=== PATIENT | female | born 1950 | race Caucasian/White ===

== ENCOUNTER → 2016-04-08 | Outpatient (CLI) | payer MEDICARE ==
[2016-04-08 18:26] LABS: Basophils # (A) 0.1 k/uL (0-0.2); Basophils % (A) 1 %; CH 29.6; CHCM 32.4; Eosinophils # (A) 0.2 k/uL (0-0.7); Eosinophils % (A) 3 %; HCT 39.4 % (34.0-46.0); HGB 12.4 gm/dL (11.4-16.0); Luc # (Auto) 0.07; Luc % (Auto) 1; Lymphocytes # (A) 1.6 k/uL (1.0-4.8); Lymphocytes % (A) 25 %; MCH 28.9 pg (25.0-35.0); MCHC 31.5 g/dL (31.0-37.0); MCV 91.8 fL (80.0-100.0); Monocytes # (A) 0.2 k/uL (0-1.0); Monocytes % (A) 3 %; Neutrophils # (A) 4.3 k/uL (1.3-7.7); Neutrophils % (A) 67 %; RDW 13.5 % (11.5-15.5); WBC 6.4 k/uL (3.8-10.6); WBC (Perox) 6.75
[2016-04-08 19:27] LABS: ALT 38 U/L (9-52); AST 29 U/L (14-36); Alkaline Phosphatase 105 U/L (38-126); Anion Gap 10 mmol/L; Blood Urea Nitrogen 28 mg/dL (7-17); Carbon Dioxide 24 mmol/L (22-30); Chloride 110 mmol/L (98-107); Cholesterol 217 mg/dL (<200); Glucose 108 mg/dL (74-99); HDL Cholesterol 74 mg/dL (40-60); Non-African American GFR(MDRD) >60 (>60 ml/min/1.73 sqM); Potassium 4.4 mmol/L (3.5-5.1); Sodium 144 mmol/L (137-145); Total Bilirubin 0.3 mg/dL (0.2-1.3); Total Protein 6.9 g/dL (6.3-8.2); Triglycerides 79 mg/dL (<150)
== END | disposition home or self-care (01) ==
LOC: MMGSC 09:16
PROVIDERS: ATTEND Family Medicine
DX: I10 Essential (primary) hypertension (principal); E78.5 Hyperlipidemia, unspecified
CPT/HCPCS: 36415; 80053; 80061; 84439; 84443; 85025

== ENCOUNTER → 2016-04-09 | Outpatient (CLI) | payer MEDICARE ==
--- NOTE | 2016-04-09 12:18 | EST ---
DATE OF SERVICE: 04/09/2016 AGE: 65Y SEX: F HT: 60" WT: 175 lbs. Protocol [place]: X Other: Stress Stage: II Dur. of Exercise: 7:04 *Heart Rate Blood Pressure *Rest: 69 Rest: 160/60 * *Max. Achieved: 154 Maximum BP: 180/77 85% PMHR: 130 100% PMHR: 154 *METS: 3.7 INDICATIONS: Hypertension. MEDICATIONS: Aspirin, lorazepam, citalopram, clonidine. Mrs. Hayes is a 65-year-old female being evaluated for symptoms of chest pain. Baseline EKG showed a sinus rhythm with mild diffuse changes in the inferolateral leads and also anterolateral leads. Blood pressure at rest was 160/60 with pulse rate of 69. Patient walked on the [place] protocol for 7 minutes, achieving a maximum heart rate of about 154 with a blood pressure of about 180/77. EKGs taken during and after the exercise continued to show nonspecific ST-T abnormalities. Patient complained of chest pain, a scale of 1 to 10 at about 4. This was relieved with rest and sublingual nitroglycerin. FINAL IMPRESSION: 1. Inconclusive stress test because of baseline EKG abnormalities. 2. Patient complained of chest pain, suggestive of angina relieved with rest and nitroglycerin. 3. Patient may be considered for further evaluation, either with a pharmacological stress test or a cardiac catheterization for evaluation of chest pains.
== END | disposition home or self-care (01) ==
LOC: RADNMMAIN 10:32
PROVIDERS: ATTEND Family Medicine
DX: R94.31 Abnormal electrocardiogram [ECG] [EKG] (principal); R07.9 Chest pain, unspecified; I10 Essential (primary) hypertension; E78.5 Hyperlipidemia, unspecified
CPT/HCPCS: 93017

== ENCOUNTER 2016-05-02 06:18 | Day surgery (SDC) | payer MEDICARE, OTHER ==
[2016-05-01 10:49] VITALS: BMI 34.2
[2016-05-02] MEDS ORDERED: ATORVASTATIN 80 MG TAB PO STA (06:29)
[2016-05-02] MEDS ORDERED: SODIUM CHLORIDE 0.9% 1,000 ML in EMPTY BAG 1 BAG IV ONE (06:29)
[2016-05-02] MEDS ORDERED: ALPRAZolam 0.5 MG TAB PO PRN (06:29)
[2016-05-02] MEDS ORDERED: ASPIRIN 325 MG TAB PO STA (06:29)
[2016-05-02] MEDS ORDERED: NITROGLYCERIN SL TABS 0.4 MG TAB SUBLINGUAL PRN (06:29)
[2016-05-02] MEDS ORDERED: ALPRAZolam 0.25 MG TAB PO PRN (06:29)
[2016-05-02 06:53] VITALS: TEMP 97.9
[2016-05-02] MEDS ORDERED: LIDOCAINE 2% INJ 20 MG/ML (20 ML MDV) ONE (07:13)
[2016-05-02] MEDS ORDERED: diphenhydrAMINE 50 MG/ML 1 ML VIAL ONE (07:20)
[2016-05-02] MEDS ORDERED: fentaNYL (PF) 50 MCG/ML 2 ML AMP ONE (07:21)
[2016-05-02] MEDS ORDERED: diphenhydrAMINE 50 MG/ML 1 ML VIAL IVP ONE (07:37)
[2016-05-02] MEDS ORDERED: fentaNYL (PF) 50 MCG/ML 2 ML AMP IV ONE (07:44)
[2016-05-02] MEDS ORDERED: LIDOCAINE 2% INJ 20 MG/ML SQ ONE (07:46)
[2016-05-02] MEDS ORDERED: ENALAPRILAT 1.25 MG/ML 1 ML VIAL ONE (07:52)
[2016-05-02] MEDS ORDERED: ENALAPRILAT 1.25 MG/ML 1 ML VIAL IVP ONE (07:53)
[2016-05-02] MEDS ORDERED: IOHEXOL 350 MG/ML 100 ML BOTTLE INJ ONE (08:02)
[2016-05-02] MEDS ORDERED: RX INFO: IV CONTRAST WAS GIVEN 1 EACH MISC MISCELLANE PRN (08:12)
[2016-05-02] MEDS ORDERED: FUROSEMIDE 10 MG/ML 2 ML VIAL IV STA (08:15)
[2016-05-02] MEDS ORDERED: SODIUM CHLORIDE 0.9% 1,000 ML IV SCH (08:15)
--- NOTE | 2016-05-02 08:20 | P.PCN ---
Date of Procedure: 05/02/16 Preoperative Diagnosis: Chest pain ,rule out coronary artery disease Postoperative Diagnosis: Normal coronary arteries Procedure(s) Performed: Left heart catheterization without left ventriculography Description of Procedure: HISTORY: This is a 65-year-old female with history of hypertension who is evaluated been stress test because of her recurrent chest pains. Patient developed nonspecific ST-T abnormalities and chest pains relieved with nitroglycerin during stress test. Patient is advised to have a the nuclear stress test or a cardiac catheterization for definitive diagnosis. Patient has strong family history of ischemic heart disease and preferred to have a cardiac cath. CONSENT:I have discussed the risks, benefits and alternative therapies for the above-mentioned procedure and for both sedation/analgesia as well as necessary blood product administration, if indicated, as they pertain to this patient. The patient has indicated understanding and acceptance of the risks and procedures discussed. PROCEDURE: Patient was brought to the lab in a fasting state. Patient was given some IV sedation. The right groin is infiltrated with lidocaine and right femoral artery was entered using Seldinger technique. A 6-Armenian catheter was left in place and selective coronary arteriography was performed. Patient tolerated the procedure well. Femoral angiogram was performed and Angio-Seal was applied for hemostasis. No immediate complications were noted and patient was transferred to [facility] in a stable condition HEMODYNAMICS: The aortic pressure is about 170/80. Left ankle end-diastolic pressure is about 20-25. There was no gradient across the aortic valve SELECTIVE CORONARY ARTERIOGRAPHY: LEFT MAIN: Normal length and patent THE LEFT ANTERIOR DESCENDING CORONARY ARTERY: This is a fair caliber vessel but becomes small in caliber in the distal distribution. Q's rise to good-sized diagonal branch. The LAD and the diagonal branch are free of any significant focal occlusive disease. THE LEFT CIRCUMFLEX AND IS CORONARY ARTERY: This is a good caliber vessel giving rise to good-sized OM branch. The circumflex coronary artery is free of occlusive disease. THE RIGHT CORONARY ARTERY: This is a good caliber vessel giving rise to PDA and PLV and dominant in nature. Free of any occlusive disease LEFT VENTRICULOGRAPHY: Not performed FINAL IMPRESSION: #1 normal coronary arteries #2 elevated end-diastolic pressures #3 hypertensive cardiac vascular disease #4 atypical chest pain PLAN: Maximum medical therapy and risk factor modification PROGNOSIS: Fair
[2016-05-02] MEDS ORDERED: LISINOPRIL 5 MG TAB PO SCH (09:00)
[2016-05-02 11:19] VITALS: PULSE 56; RESP 18
[2016-05-02 12:23] VITALS: BP 173/79
--- NOTE | 2016-05-08 08:42 | CDI ---
Per your operative report the patient was given some IV sedation and Fentanyl is noted to be administered. Per new CMS ([employer] for Medicare and Medicaid Services) guidelines there is a change by which the work of moderate sedation will be reimbursed separately. Further clarification of your documentation of some IV sedation is needed for proper reporting purposes. Please clarify the type of sedation this patient received during the cardiac catheterization. Moderate/conscious sedation MAC (unconscious sedation) General Anesthesia Other (please specify) Please document your findings in an addendum to the Procedure Note. Thank you for your time. EMEKA
== END 2016-05-02 13:01 | disposition home or self-care (01) ==
LOC: CATHCVL 06:18
PROVIDERS: ATTEND Internal Medicine Cardiovascular Disease
DX: R07.89 Other chest pain (principal); I11.9 Hypertensive heart disease without heart failure; I10 Essential (primary) hypertension; Z82.49 Family history of ischemic heart disease and other diseases of the circulatory system; Z79.899 Other long term (current) drug therapy
CPT/HCPCS: 99156; 93458; C1760; C1894; C1769; J2001; J1200; Q9967; J3010

== ENCOUNTER → 2016-07-07 | Outpatient (CLI) | payer MEDICARE ==
[2016-07-07 18:37] LABS: Cholesterol 227 mg/dL (<200); Glucose 102 mg/dL (74-99); HDL Cholesterol 70 mg/dL (40-60); Triglycerides 91 mg/dL (<150)
[2016-07-07 19:55] LABS: Hemoglobin A1C 5.8 % (4.2-6.1)
== END ==
LOC: MMGSC 09:15
PROVIDERS: ATTEND Family Medicine
DX: E78.5 Hyperlipidemia, unspecified (principal); I10 Essential (primary) hypertension; R73.9 Hyperglycemia, unspecified
CPT/HCPCS: 36415; 80061; 82947; 83036

== ENCOUNTER → 2017-05-20 | Outpatient (CLI) | payer MEDICARE ==
[2017-05-20 20:01] LABS: Albumin 3.9 g/dL (3.5-5.0); Calcium 10.1 mg/dL (8.4-10.2); Potassium 4.3 mmol/L (3.5-5.1); Total Bilirubin 0.4 mg/dL (0.2-1.3)
== END | disposition home or self-care (01) ==
LOC: MMGSC 10:36
PROVIDERS: ATTEND Family Medicine
DX: I10 Essential (primary) hypertension (principal); E78.5 Hyperlipidemia, unspecified
CPT/HCPCS: 36415; 80053; 80061

== ENCOUNTER → 2017-11-03 | Outpatient (CLI) | payer MEDICARE ==
--- NOTE | 2017-11-04 10:32 | MM ---
Reason for exam: additional evaluation requested from prior study. Last mammogram was performed 1 year and 11 months ago. History: Patient is postmenopausal and has history of endometrial cancer at age 29. Family history of breast cancer in aunt, premenopausal breast cancer in sister at age 48, and breast cancer in maternal grandmother at age 44. Benign excisional biopsy of the right breast, March 30, 2002. Benign excisional biopsy of the left breast. Took progesterone for 3 years beginning at age 60. Physical Findings: Nurse did not find any significant physical abnormalities on exam. MG 3D Diag Mammo W/Cad SAMI Bilateral CC and MLO view(s) were taken. Prior study comparison: November 21, 2015, bilateral MG screening mammo w CAD. September 04, 2014, bilateral MG screening mammo w CAD. June 24, 2013, bilateral digital screening mammo w/CAD. There are scattered fibroglandular densities. Stable excisional changes on both sides. No significant new findings when compared with previous films. These results were verbally communicated with the patient and result sheet given to the patient on 11/03/17. ASSESSMENT: Negative, BI-RAD 1 RECOMMENDATION: Routine screening mammogram of both breasts in 1 year.
== END | disposition home or self-care (01) ==
LOC: RADMAMWWP 12:47
PROVIDERS: ATTEND Family Medicine
DX: R92.8 Other abnormal and inconclusive findings on diagnostic imaging of breast (principal)
CPT/HCPCS: 77066; G0279; 77062

== ENCOUNTER → 2017-12-01 | Outpatient (CLI) | payer MEDICARE ==
[2017-12-01 12:16] LABS: ALT 12 U/L (9-52); AST 23 U/L (14-36); Alkaline Phosphatase 92 U/L (38-126); Anion Gap 7 mmol/L; Blood Urea Nitrogen 14 mg/dL (7-17); Calcium 9.5 mg/dL (8.4-10.2); Carbon Dioxide 28 mmol/L (22-30); Chloride 103 mmol/L (98-107); Glucose 112 mg/dL (74-99); Magnesium 1.8 mg/dL (1.6-2.3); Potassium 4.1 mmol/L (3.5-5.1); Sodium 138 mmol/L (137-145); Total Bilirubin 0.3 mg/dL (0.2-1.3); Total Protein 6.9 g/dL (6.3-8.2)
[2017-12-01 14:15] LABS: HCT 39.9 % (34.0-46.0); HGB 12.9 gm/dL (11.4-16.0); MCH 29.5 pg (25.0-35.0); MCHC 32.2 g/dL (31.0-37.0); MCV 91.5 fL (80.0-100.0); Mean Platelet Volume 7.4; Platelet Count 322 k/uL (150-450); RBC 4.36 m/uL (3.80-5.40); RDW 13.1 % (11.5-15.5); WBC 10.3 k/uL (3.8-10.6)
== END | disposition home or self-care (01) ==
LOC: LABWHC1 10:51
PROVIDERS: ATTEND Family Medicine
DX: G80.9 Cerebral palsy, unspecified (principal)
CPT/HCPCS: 36415; 80053; 83735; 85027; 85379

== ENCOUNTER → 2019-02-23 | Outpatient (CLI) | payer MEDICARE ==
--- NOTE | 2019-02-24 13:33 | MM ---
Reason for exam: screening (asymptomatic). Last mammogram was performed 1 year and 4 months ago. History: Patient is postmenopausal and has history of endometrial cancer at age 29. Family history of breast cancer in aunt, premenopausal breast cancer in sister at age 48, and breast cancer in maternal grandmother at age 44. Benign excisional biopsy of the right breast, March 30, 2002. Benign excisional biopsy of the left breast. Took progesterone for 3 years beginning at age 60. Physical Findings: A clinical breast exam by your physician is recommended on an annual basis and results should be correlated with mammographic findings. MG 3D Screening Mammo W/Cad Bilateral CC and MLO view(s) were taken. Prior study comparison: November 03, 2017, bilateral MG 3d diag mammo w/cad SAMI. November 28, 2015, right breast MG work up mamm w CAD RT. The breast tissue is heterogeneously dense. This may lower the sensitivity of mammography. Benign appearing bilateral calcifications. No suspicious abnormality. Post excisional change on the right. No significant changes when compared with prior studies. ASSESSMENT: Benign, BI-RAD 2 RECOMMENDATION: Routine screening mammogram of both breasts in 1 year.
== END | disposition home or self-care (01) ==
LOC: RADMAMWWP 15:28
PROVIDERS: ATTEND Family Medicine
DX: Z12.31 Encounter for screening mammogram for malignant neoplasm of breast (principal)
CPT/HCPCS: 77063; 77067

== ENCOUNTER → 2019-03-22 | Outpatient (CLI) | payer MEDICARE ==
[2019-03-22 10:06] LABS: HCT 36.4 % (34.0-46.0); MCH 29.1 pg (25.0-35.0); MCV 88.4 fL (80.0-100.0); Mean Platelet Volume 7.5; Platelet Count 291 k/uL (150-450); RBC 4.12 m/uL (3.80-5.40); RDW 14.3 % (11.5-15.5); WBC 7.3 k/uL (3.8-10.6)
[2019-03-22 16:14] LABS: ALT 25 U/L (8-44); AST 28 U/L (13-35); African American GFR (CKD) 75.6 (60.0-200.0); Albumin/Globulin Ratio 2.32 (1.60-3.17); Alkaline Phosphatase 119 U/L (41-126); BUN/Creat Ratio 21.11 Ratio (12.00-20.00); Calcium 9.7 mg/dL (8.7-10.3); Chloride 104 mmol/L (96-109); Globulin 1.9 g/dL (1.6-3.3); Glucose 108 mg/dL (70-110); Iron 48 ug/dL (50-170); Non-African American GFR(CKD) 65.2 (60.0-200.0); Potassium 3.5 mmol/L (3.5-5.5); Sodium 142 mmol/L (135-145); Total Bilirubin 0.4 mg/dL (0.2-1.2); Total Protein 6.3 g/dL (6.2-8.2)
[2019-03-22 16:52] LABS: Folate, Serum >24.0 ng/mL
== END | disposition home or self-care (01) ==
LOC: LABWHC1 08:52
PROVIDERS: ATTEND Surgery
DX: K90.9 Intestinal malabsorption, unspecified (principal); I10 Essential (primary) hypertension; D50.9 Iron deficiency anemia, unspecified; E55.9 Vitamin D deficiency, unspecified; D51.8 Other vitamin B12 deficiency anemias; Z98.84 Bariatric surgery status
CPT/HCPCS: 36415; 80053; 82306; 82607; 82746; 83540; 84425; 85027

== ENCOUNTER → 2019-04-15 | Outpatient (CLI) | payer MEDICARE ==
--- NOTE | 2019-04-15 13:59 | US ---
EXAMINATION TYPE: US venous doppler duplex LE RT DATE OF EXAM: 04/15/2019 1:54 PM COMPARISON: NONE CLINICAL HISTORY: RLE knee and calf pain M25.561. Right leg pain SIDE PERFORMED: Right TECHNIQUE: The lower extremity deep venous system is examined utilizing real time linear array sonog yolanda with graded compression, doppler sonography and color-flow sonography. VESSELS IMAGED: External Iliac Vein (EIV) Common Femoral Vein Deep Femoral Vein Greater Saphenous Vein * Femoral Vein Popliteal Vein Small Saphenous Vein * Proximal Calf Veins (* superficial vessels) Right Leg: Appears negative for DVT IMPRESSION: 1. Right lower extremity ultrasound negative for deep venous thrombosis.
== END | disposition home or self-care (01) ==
LOC: RADUSWWP 13:21
PROVIDERS: ATTEND Orthopaedic Surgery
DX: M25.561 Pain in right knee (principal); M17.11 Unilateral primary osteoarthritis, right knee; I80.9 Phlebitis and thrombophlebitis of unspecified site

== ENCOUNTER → 2023-03-05 | Outpatient (CLI) | payer MEDICARE, BC ==
[2023-03-05 18:51] LABS: Basophils # (A) 0.06 X 10*3/uL (0.00-0.10); Basophils % (A) 0.9 %; Eosinophils # (A) 0.07 X 10*3/uL (0.04-0.35); Eosinophils % (A) 1.1 %; HCT 39.1 % (37.2-46.3); HGB 12.5 g/dL (12.0-15.0); Lymphocytes # (A) 2.08 X 10*3/uL (0.90-5.00); Lymphocytes % (A) 31.7 %; MCH 29.2 pg (27.0-32.0); MCV 91.4 FL (80.0-97.0); Mean Platelet Volume 10.9 FL (9.5-12.2); Monocytes # (A) 0.29 X 10*3/uL (0.20-1.00); Monocytes % (A) 4.4 %; NRBC Per 100 WBC 0 X 10*3/uL (0.00-0.01); Neutrophils # (A) 4.04 X 10*3/uL (1.80-7.70); Neutrophils % (A) 61.6 %; Platelet Count 330 X 10*3/uL (140-440); RBC 4.28 X 10*6/uL (4.10-5.20); RDW 13.8 % (11.5-14.5); WBC 6.56 X 10*3/uL (4.50-10.00)
[2023-03-05 18:54] LABS: Blood Urea Nitrogen 20.2 mg/dL (9.0-27.0); Calcium 10.1 mg/dL (8.7-10.3); Carbon Dioxide 23.7 mmol/L (21.6-31.8); Chloride 105 mmol/L (96-109); Glucose 96 mg/dL (70-110); Potassium 4.1 mmol/L (3.5-5.5); Sodium 146 mmol/L (135-145)
== END | disposition home or self-care (01) ==
LOC: LABPAT 11:13
PROVIDERS: ATTEND Orthopaedic Surgery Hand Surgery
DX: Z01.812 Encounter for preprocedural laboratory examination (principal); G56.02 Carpal tunnel syndrome, left upper limb; M65.4 Radial styloid tenosynovitis [de Quervain]
CPT/HCPCS: 36415; 80048; 85025

== ENCOUNTER → 2023-03-18 | Day surgery (SDC) | payer BC, MEDICARE ==
--- NOTE | 2023-03-17 10:04 | P.HPOR ---
History of Present Illness H&P Date: 03/17/23 Subjective: This is a 72 year old female that presents today for initial evaluation regarding a several year history of progressively worsening left hand paresthesias in the thumb, index, middle and ring fingers. The patient has tried a steroid injection in the past with only temporary relief. She also has diffuse radial sided wrist pain that is worse with flexion/extension of the wrist and with carrying objects. She underwent steroid injection into the first dorsal compartment with temporary relief within the last year. She underwent a right endoscopic carpal tunnel release for severe carpal tunnel syndrome 10 months prior and has great relief from her symptoms on the right side. The patient denies any inciting event or neck pain. Physical Examination: LUE: AIN/PIN/Radial/Ulnar/Median motor intact. Radial/Ulnar/Median SILT. 2+/4 Ra dial/Ulnar pulses palpated. 5/5 APB, 5/5 FDI. Positive Finkelsteins, negative CMC grind, positive Durkan's compression. Impression: 1.) Left carpal tunnel syndrome 2.) Left DeQuervains tenosynovitis Plan: Diagnosis and treatment options were discussed with the patient. The patient has failed conservative treatment and would like to pursue a left endoscopic vs open carpal tunnel release and left first dorsal compartment release. Risks and benefits of surgery including bleeding, infection, damage to surrounding tissue, need for further surgery, possible need to convert to open procedure, residual numbness were discussed and the patient wished to go forward with surgery. CC: Dr Olga Mcfarlane MD -Valdez Nielsen DO Orthopedic Hand/Upper Extremity Surgeon Past Medical History Past Medical History: Cancer Additional Past Medical History / Comment(s): see Dr Bergeron H&P, hx cervical cancer History of Any Multi-Drug Resistant Organisms: None Reported Past Surgical History: Appendectomy, Bladder Surgery, Cholecystectomy, Hysterectomy Additional Past Surgical History / Comment(s): claudia cataracts Past Anesthesia/Blood Transfusion Reactions: No Reported Reaction Additional Past Anesthesia/Blood Transfusion Reaction / Comment(s): no hx blood transfusion Smoking Status: Never smoker - Past Family History Sister(s) Family Medical History: Cancer Medications and Allergies Home Medications Medication Instructions Recorded Confirmed Type Acetaminophen/Diphenhydramine 2 tab PO HS 04/15/22 04/23/22 History [Tylenol PM 500-25mg] Biotin 10 mg PO DAILY 04/15/22 04/23/22 History Calcium Lactate 1 tab PO DAILY 04/15/22 04/23/22 History Cholecalciferol [Vitamin D3 (25 25 mcg PO DAILY 04/15/22 04/23/22 History Mcg = 1000 Iu)] Levothyroxine Sodium [Synthroid] 50 mcg PO QAM 04/15/22 04/23/22 History Losartan [Cozaar] 50 mg PO QAM 04/15/22 04/23/22 History Pedi Multivit No.25/Folic Acid 1 tab PO DAILY 04/15/22 04/23/22 History [Flintstones Multivit Chew Tab] Rosuvastatin [Crestor] 10 mg PO DAILY 04/15/22 04/23/22 History Turmeric Root Extract [Turmeric] 500 mg PO DAILY 04/15/22 04/23/22 History Venlafaxine HCl [Effexor XR] 75 mg PO QAM 04/15/22 04/23/22 History busPIRone HCl [Buspar] 10 mg PO BID 04/15/22 04/23/22 History hydroCHLOROthiazide 25 mg PO DAILY 04/15/22 04/23/22 History Allergies Allergy/AdvReac Type Severity Reaction Status Date / Time bandaid Allergy little skin Uncoded 03/17/23 09:58 Physical Examination Osteopathic Statement: *. No significant issues noted on an osteopathic structural exam other than those noted in the History and Physical/Consult.
[2023-03-17 10:37] VITALS: BMI 32.2
[~2023-03-18] MED LIST: BUPIVACAINE (PF) 0.5% 30 ML VIAL SQ ONE; DEXAMETHASONE SOD PHOSPHATE 4 MG/ML 1 ML VIAL IV ONE; HYDROmorphone 0.5 MG/0.5 ML SYRINGE IVP PRN; LACTATED RINGERS 1,000 ML IV SCH; LIDOCAINE 1% (10MG/ML) FOR IV START INTRADERMA PRN; LIDOCAINE 2% INJ 20 MG/ML SQ ONE; MIDAZOLAM 2 MG/2 ML VIAL ONE; ONDANSETRON 4 MG/2 ML VIAL IVP ONE; PROPOFOL 10 MG/ML 20 ML VIAL IV ONE; Pre Op ABX Message 1 EACH MISC MISCELLANE ONE; droPERidol 5 MG/2 ML VIAL IVP ONE; fentaNYL (PF) 50 MCG/ML 2 ML AMP ONE
[2023-03-18 09:54] VITALS: TEMP 97
--- NOTE | 2023-03-18 11:45 | P.OP ---
Date of Procedure: 03/18/23 Preoperative Diagnosis: 1.) Left carpal tunnel syndrome 2.) Left DeQuervains tenosynovitis Postoperative Diagnosis: 1.) Left carpal tunnel syndrome 2.) Left DeQuervains tenosynovitis Procedure(s) Performed: 1.) Left endoscopic carpal tunnel release 2.) Left first dorsal compartment release Surgeon: Valdez Nielsen Estimated Blood Loss (ml): 0 Pathology: none sent Condition: stable Disposition: PACU Description of Procedure: This is a 72 year old female who presents today for a left endoscopic carpal tunnel release after having failed conservative treatment in the past. Risks and benefits of surgery were discussed with the patient including bleeding, damage to surrounding tissue, infection, need to convert to open procedure, need for further surgery as well as risks of anesthesia including pulmonary embolism and even and the patient wished to proceed with surgical intervention. The patients was seen in the pre-operative area by myself. Consent and H&P were completed and updated. The correct extremity was marked in the pre-operative area by myself and all other questions were answered. Operative Narrative: The patient was brought to the operating room by the department of anesthesia. They remained on the portable stretcher and a rolling hand table was brought to the side of the operative extremity. Pre-operative time out was performed indicating the correct patient, procedure and laterality. All in the room agreed. The patient was then drifted off to sleep by the department of anesthesia. MAC anesthesia was utilized and a 50:50 mixture of 1% Lidocaine and 0.5% bupivacaine was injected into the subcutaneous tissues of the palmar skin, 14ccs total. A nonsterile tourniquet was then applied to the operative extremity and the left upper extremity was then prepped and draped in normal sterile fashion. The operative extremity was the exsanguinated with an esmarch bandage and the tourniquet was inflated to 250mmHg. 15 blade scalpel was utilized to make a transverse incision on the palmar skin just ulnar to the palmaris longus tendon at the level of the distal wrist crease. Ragnell retractor was then placed radially and blunt dissection was performed to reveal the distal forearm fascia. This was lifted with fine Jeison pick ups and Littler tenotomy scissors were then used to open the forearm fascia transversely and a double skin hook was then placed. Hamate finder was placed into the carpal tunnel and then sequential sized dilators were inserted followed by the synovial elevator to separate the flexor tenosynovium from the undersurface of the transverse carpal ligament and a washboard texture was felt. The MicroAire endoscopic carpal tunnel release system gun was the then inserted into the carpal tunnel hugging the deep portion of the transverse carpal ligament in line with the base of the ring finger. Transverse fibers of the ligament were directly visualized. Pressure was applied on the palm to reveal the distal extent of the transverse carpal ligament. The blade was then deployed and the distal half of the transverse carpal ligament was released. The scope was then brought distal again and remaining transverse fibers were incised with the blade. The proximal half of the transverse carpal ligament was then divided and again the scope was advanced distal and remaining transverse fibers were incised with the blade. The radial and ulnar leaflets were directly visualized and mobile consistent with complete release. Tenotomy scissors were then utilized to release the remaining distal forearm fascia under direct visualization taking care to preserve the palmar cutaneous branch of the median nerve. Attention was then drawn to the radial portion of the wrist. A horizontal incision was made over the level of the first dorsal compartment. Blunt dissection was taken down through subcutaneous tissues with tenotomy scissors taking care to protect the superficial radial sensory nerve branches. The first dorsal compartment was identified then released under direct visualization on the dorsal aspect of the sheath. A separate EPB tendon sheath was identified and also released. Skin closure was performed with 4-0 Nylon suture. Tourniquet was let down and the hand immediately was well perfused. Sterile dressing was applied consisting 4x4s, Webril, and an guille bandage. The patient was then woken by the department of anesthesia and transferred to PACU in stable condition. Loco MODI was present for the case in its entirety and assisted in major portions of the case and protection of vital neurovascular structures. Valdez Nielsne D.O. Orthopedic Hand/Upper Extremity Surgeon
[2023-03-18 12:15] VITALS: RESP 16
[2023-03-18 12:39] VITALS: BP 130/73; PULSE 64
== END | disposition home or self-care (01) ==
LOC: OR 09:20
PROVIDERS: ATTEND Orthopaedic Surgery Hand Surgery
DX: G56.02 Carpal tunnel syndrome, left upper limb (principal); M65.4 Radial styloid tenosynovitis [de Quervain]; Z79.890 Hormone replacement therapy; Z85.41 Personal history of malignant neoplasm of cervix uteri
CPT/HCPCS: 29848; 26055; J2001; J2250; J1100; J2405; J3010; J2704; J0665

== ENCOUNTER 2024-01-15 13:15 | Observation (INO) | payer MEDICARE ==
--- NOTE | 2024-01-15 14:18 | ED ---
General Adult HPI - General Chief complaint: Arrhythmia/Palpitations Stated complaint: dizziness Time Seen by Provider: 01/15/24 14:10 Source: patient Mode of arrival: wheelchair Limitations: no limitations - History of Present Illness Initial comments: Dictation was produced using [employer] dictation software. please excuse any grammatical, word or spelling errors. Chief Complaint: 73-year-old female with allegedly no history of cardiac disease presents to the ER for palpitations chest pain and dizziness History of Present Illness: Patient 73-year-old female states that she has a history of cervical cancer. Patient complaining today of 2 days of palpitations. States that she feels as though her heart skipping a beat. She also complains of associated chest pressure. Nonradiating. She does complain of some associated dizziness. Patient denies any coronary artery disease. States that she has been seen by cardiology in the past. The ROS documented in this emergency department record has been reviewed and confirmed by me. Those systems with pertinent positive or negative responses have been documented in the HPI. All other systems are other negative and/or noncontributory. - Related Data Home Medications Medication Instructions Recorded Confirmed Acetaminophen/Diphenhydramine 2 tab PO HS 04/15/22 03/18/23 [Tylenol PM 500-25mg] Biotin 10 mg PO DAILY 04/15/22 03/18/23 Calcium Lactate 1 tab PO DAILY 04/15/22 03/18/23 Cholecalciferol [Vitamin D3 (25 25 mcg PO DAILY 04/15/22 03/18/23 Mcg = 1000 Iu)] Levothyroxine Sodium [Synthroid] 50 mcg PO QAM 04/15/22 03/18/23 Losartan [Cozaar] 50 mg PO QAM 04/15/22 03/18/23 Pedi Multivit No.25/Folic Acid 1 tab PO DAILY 04/15/22 03/18/23 [Flintstones Multivit Chew Tab] Rosuvastatin [Crestor] 10 mg PO DAILY 04/15/22 03/18/23 Turmeric Root Extract [Turmeric] 500 mg PO DAILY 04/15/22 03/18/23 Venlafaxine HCl [Effexor XR] 75 mg PO QAM 04/15/22 03/18/23 busPIRone HCl [Buspar] 10 mg PO BID 04/15/22 03/18/23 hydroCHLOROthiazide 25 mg PO DAILY 04/15/22 03/18/23 Previous Rx's Medication Instructions Recorded HYDROcodone/APAP 5-325MG [[place] 1 tab PO Q6HR PRN 3 Days #12 tab 03/18/23 5-325] Allergies Allergy/AdvReac Type Severity Reaction Status Date / Time bandaid Allergy little skin Uncoded 03/18/23 09:40 Review of Systems ROS Statement: Those systems with pertinent positive or pertinent negative responses have been documented in the HPI. ROS Other: All systems not noted in ROS Statement are negative. Past Medical History Past Medical History: Cancer Additional Past Medical History / Comment(s): see Dr Bergeron H&P, hx cervical cancer History of Any Multi-Drug Resistant Organisms: None Reported Past Surgical History: Appendectomy, Bladder Surgery, Cholecystectomy, Hysterectomy Additional Past Surgical History / Comment(s): claudia cataracts Past Anesthesia/Blood Transfusion Reactions: No Reported Reaction Additional Past Anesthesia/Blood Transfusion Reaction / Comment(s): no hx blood transfusion Past Psychological History: Anxiety Smoking Status: Never smoker - Past Family History Sister(s) Family Medical History: Cancer General Exam - General Exam Comments Initial Comments: PHYSICAL EXAM: General Impression: Alert and oriented x3, not in acute distress HEENT: Normocephalic atraumatic, extra-ocular movements intact, pupils equal and reactive to light bilaterally, mucous membranes moist. Cardiovascular: Heart regular rate and rhythm Chest: Able to complete full sentences, no retractions, no tachypnea Abdomen: abdomen soft, non-tender, non-distended, no organomegaly Musculoskeletal: Pulses present and equal in all extremities, no peripheral edema Motor: no focal deficits noted Neurological: CN II-XII grossly intact, no focal motor or sensory deficits noted Skin: Intact with no visualized rashes Psych: Normal affect and mood Limitations: no limitations Course Vital Signs 01/15/24 01/15/24 01/15/24 13:18 14:25 15:00 Temperature 97.6 F Pulse Rate 83 83 72 Respiratory 16 16 18 Rate Blood Pressure 166/81 111/86 160/90 O2 Sat by Pulse 100 98 96 Oximetry EKG Findings - EKG Comments: EKG Findings:: My EKG interpretation: Ventricular rate 79, sinus rhythm,. 133, QRS 96, QTc 426. No FL prolongation, no QTC prolongation. T wave inversions along with depressions in inferior leads and lateral precordial leads. Does have some pre-existing inversions however seems to be more pronounced this EKG. Overall this EKG is nonspecific. Medical Decision Making - Medical Decision Making Was pt. sent in by a medical professional or institution (, PA, PATIENT ASSISTANT, urgent care, hospital, or prison...) When possible be specific @ -No Did you speak to anyone other than the patient for history (EMS, parent, family, police, friend...)? What history was obtained from this source @ -No Did you review nursing and triage notes (agree or disagree)? Why? @ -I reviewed and agree with nursing and triage notes Were old charts reviewed (outside hosp., previous admission, EMS record, old EKG, old radiological studies, urgent care reports/EKG's, prison records)? Report findings @ -No old charts were reviewed Differential Diagnosis (chest pain, altered mental status, abdominal pain women, abdominal pain men, vaginal bleeding, musculoskeletal, weakness, fever, dyspnea, syncope, headache, dizziness, GI bleed, back pain, seizure, CVA, palpatations, mental health)? @ -Differential Chest Pain: Stable Angina, Unstable Angina, STEMI, NSTEMI Aortic Dissection, Pneumothorax, Musculoskeletal, Esophageal Spasm GERD, Cholecystitis, Pancreatitis, Zoster, this is not meant to be an all-inclusive list. EKG interpreted by me (3pts min.). @ -See above initial EKG showed depressions. Repeat EKG showed no dynamic changes. No ST elevation FL seen on either EKG X-rays interpreted by me (1pt min.). @ -Chest x-ray is nonacute CT interpreted by me (1pt min.). @ -None done U/S interpreted by me (1pt. min.). @ -None done What testing was considered but not performed or refused? (CT, X-rays, U/S, labs)? Why? @ -None What meds were considered but not given or refused? Why? @ -None Was smoking cessation discussed for >3mins.? @ -No Were there social determinants of health that impacted care today? How? (Homelessness, low income, unemployed, alcoholism, drug addiction, transportation, low edu. Level, literacy, decrease access to med. care, correction, rehab)? @ -No Was there de-escalation of care discussed even if they declined (Discuss DNR or withdrawal of care, Hospice)? DNR status @ -No What co-morbidities impacted this encounter? (DM, HTN, Smoking, COPD, CAD, Cancer, CVA, ARF, Chemo, Hep., AIDS, mental health diagnosis, sleep apnea, m orbid obesity)? @ -Age, family history of coronary artery disease Was patient admitted / discharged? Hospital course, mention meds given and route, prescriptions, significant lab abnormalities, going to OR and other pertinent info. @ -73-year-old female multiple risk factors presents to the emergency department palpitations associated with dizziness and chest pressure. Vital signs upon arrival are within acceptable limits. Initial EKG was suspicious for ischemia however repeat EKG showed no dynamic changes. Patient reevaluated bedside 3:28 PM with no symptoms of chest pressure. Laboratory evaluation obtained. Labs are unremarkable. Troponin is negative. Vital signs remained stable at 3:00 PM. Given patient's age risk factors she will be admitted to observation consultation cardiology. Patient given dose of aspirin. Did you discuss the management of the patient with other professionals (professionals i.e. , PA, PATIENT ASSISTANT, lab, RT, psych nurse, health care social worker, lawyer criminal, teacher, chairman & chief executive officer, rehabilitation caseworker)? Give summary @ -No Was critical care preformed (if so, how long)? @ -No Undiagnosed new problem with uncertain prognosis? @ -No Drug Therapy requiring intensive monitoring for toxicity (Heparin, Nitro, Insulin, Cardizem)? @ -No Were any procedures done? @ -No Diagnosis/symptom? Acute, or Chronic, or Acute on Chronic? Uncomplicated (without systemic symptoms) or Complicated (systemic symptoms)? @ -Acute coronary syndrome Side effects of treatment? @ -No Exacerbation, Progression, or Severe Exacerbation? @ -No Poses a threat to life or bodily function? How? (Chest pain, [place], FL, pneumonia, PE, COPD, DKA, ARF, appy, cholecystitis, CVA, Diverticulitis, Homicidal, Suicidal, threat to staff... and all critical care pts) @ -yes - Lab Data Result diagrams: 01/15/24 14:00 01/15/24 14:00 Lab Results 01/15/24 01/15/24 01/15/24 Range/Units 14:00 14:00 14:00 WBC 6.3 (3.8-10.6) k/uL RBC 4.04 (3.80-5.40) m/uL Hgb 12.3 (11.4-16.0) gm/dL Hct 37.9 (34.0-46.0) % MCV 93.9 (80.0-100.0) fL MCH 30.4 (25.0-35.0) pg MCHC 32.4 (31.0-37.0) g/dL RDW 13.5 (11.5-15.5) % Plt Count 313 (150-450) k/uL MPV 7.6 Neutrophils % 64 % Lymphocytes % 28 % Monocytes % 3 % Eosinophils % 3 % Basophils % 1 % Neutrophils # 4.1 (1.3-7.7) k/uL Lymphocytes # 1.7 (1.0-4.8) k/uL Monocytes # 0.2 (0-1.0) k/uL Eosinophils # 0.2 (0-0.7) k/uL Basophils # 0.0 (0-0.2) k/uL PT 10.2 (10.0-12.5) sec INR 0.9 (<1.2) APTT 23.6 (22.0-30.0) sec Sodium 139 (137-145) mmol/L Potassium 3.8 (3.5-5.1) mmol/L Chloride 111 H (98-107) mmol/L Carbon Dioxide 24 (22-30) mmol/L Anion Gap 4 mmol/L BUN 19 H (7-17) mg/dL Creatinine 0.75 (0.52-1.04) mg/dL Est GFR (CKD-EPI)AfAm >90 (>60 ml/min/1.73 sqM) Est GFR (CKD-EPI)NonAf 79 (>60 ml/min/1.73 sqM) Glucose 88 (74-99) mg/dL Calcium 9.6 (8.4-10.2) mg/dL Magnesium 1.9 (1.6-2.3) mg/dL Total Bilirubin 0.5 (0.2-1.3) mg/dL AST 30 (14-36) U/L ALT 20 (4-34) U/L Alkaline Phosphatase 98 (38-126) U/L Troponin I (0.000-0.034) ng/mL Total Protein 6.6 (6.3-8.2) g/dL Albumin 4.1 (3.5-5.0) g/dL 01/15/24 Range/Units 14:00 WBC (3.8-10.6) k/uL RBC (3.80-5.40) m/uL Hgb (11.4-16.0) gm/dL Hct (34.0-46.0) % MCV (80.0-100.0) fL MCH (25.0-35.0) pg MCHC (31.0-37.0) g/dL RDW (11.5-15.5) % Plt Count (150-450) k/uL MPV Neutrophils % % Lymphocytes % % Monocytes % % Eosinophils % % Basophils % % Neutrophils # (1.3-7.7) k/uL Lymphocytes # (1.0-4.8) k/uL Monocytes # (0-1.0) k/uL Eosinophils # (0-0.7) k/uL Basophils # (0-0.2) k/uL PT (10.0-12.5) sec INR (<1.2) APTT (22.0-30.0) sec Sodium (137-145) mmol/L Potassium (3.5-5.1) mmol/L Chloride (98-107) mmol/L Carbon Dioxide (22-30) mmol/L Anion Gap mmol/L BUN (7-17) mg/dL Creatinine (0.52-1.04) mg/dL Est GFR (CKD-EPI)AfAm (>60 ml/min/1.73 sqM) Est GFR (CKD-EPI)NonAf (>60 ml/min/1.73 sqM) Glucose (74-99) mg/dL Calcium (8.4-10.2) mg/dL Magnesium (1.6-2.3) mg/dL Total Bilirubin (0.2-1.3) mg/dL AST (14-36) U/L ALT (4-34) U/L Alkaline Phosphatase (38-126) U/L Troponin I <0.012 (0.000-0.034) ng/mL Total Protein (6.3-8.2) g/dL Albumin (3.5-5.0) g/dL Disposition Clinical Impression: Chest pain Disposition: ADMITTED IP TO THIS HOSP Condition: Fair Referrals: Olga Jennings MD [Primary Care Provider] - 1-2 days Time of Disposition: 15:28
[2024-01-15 14:23] LABS: Basophils % (A) 1 %; Eosinophils # (A) 0.2 k/uL (0-0.7); Eosinophils % (A) 3 %; HCT 37.9 % (34.0-46.0); HGB 12.3 gm/dL (11.4-16.0); Lymphocytes # (A) 1.7 k/uL (1.0-4.8); Lymphocytes % (A) 28 %; MCH 30.4 pg (25.0-35.0); MCHC 32.4 g/dL (31.0-37.0); MCV 93.9 fL (80.0-100.0); Mean Platelet Volume 7.6; Monocytes # (A) 0.2 k/uL (0-1.0); Monocytes % (A) 3 %; Neutrophils # (A) 4.1 k/uL (1.3-7.7); Neutrophils % (A) 64 %; Platelet Count 313 k/uL (150-450); RBC 4.04 m/uL (3.80-5.40); RDW 13.5 % (11.5-15.5); WBC 6.3 k/uL (3.8-10.6)
[2024-01-15 14:27] LABS: ALT 20 U/L (4-34); AST 30 U/L (14-36); African American GFR (CKD) >90 (>60 ml/min/1.73 sqM); Albumin 4.1 g/dL (3.5-5.0); Alkaline Phosphatase 98 U/L (38-126); Anion Gap 4 mmol/L; Blood Urea Nitrogen 19 mg/dL (7-17); Calcium 9.6 mg/dL (8.4-10.2); Carbon Dioxide 24 mmol/L (22-30); Chloride 111 mmol/L (98-107); Glucose 88 mg/dL (74-99); Magnesium 1.9 mg/dL (1.6-2.3); Non-African American GFR(CKD) 79 (>60 ml/min/1.73 sqM); Potassium 3.8 mmol/L (3.5-5.1); Sodium 139 mmol/L (137-145); Total Bilirubin 0.5 mg/dL (0.2-1.3); Total Protein 6.6 g/dL (6.3-8.2)
[2024-01-15 14:50] LABS: INR 0.9 (<1.2); Partial Thromboplastin Time 23.6 sec (22.0-30.0); Prothrombin Time 10.2 sec (10.0-12.5)
--- NOTE | 2024-01-15 14:50 | XR ---
EXAMINATION TYPE: XR chest 2V DATE OF EXAM: 01/15/2024 COMPARISON: NONE HISTORY: Dysrhythmia and dizziness TECHNIQUE: Frontal and lateral views of the chest are obtained. FINDINGS: There is no focal air space opacity, pleural effusion, or pneumothorax seen. The cardiac silhouette size is within normal limits. There is a reverse right shoulder otherwise the osseous stru ctures are intact. IMPRESSION: No acute cardiopulmonary process. [facility], , 01/15/2024 2:48 PM
[2024-01-15] MEDS: ASPIRIN 81 MG PO STA (15:03)
[2024-01-15] MEDS ORDERED: NITROGLYCERIN SL TABS 0.4 MG TAB SUBLINGUAL PRN (15:25)
--- NOTE | 2024-01-15 16:42 | P.HPIM ---
History of Present Illness H&P Date: 01/15/24 History of Presenting Illness: Patient is a very pleasant 73-year-old female with a past medical history of hypertension, hyperlipidemia, hypothyroidism, depression, anxiety, and cervical cancer status post hysterectomy. She presented to the emergency department with a chief complaint of chest pain/pressure and palpitations. Patient reports that yesterday she initially began feeling palpitations or fluttering in her chest where she felt as though she was skipping beats and having extra beats accompanied by intermittent episodes of dizziness/lightheadedness. She reports she has been taking it easy and not doing anything exertional and was just dawit ting it out and watching it but today, she was sitting and painting a Ye ornament when she developed these same palpitations but then they were accompanied by a pressure like sensation to her midsternal and left anterior chest. She describes this pain as a mild to moderate pain like she has a heavy book sitting on her chest. She denies anything making this pain better or worse is any radiation of pain. She denies any other complaints including headache, diaphoresis, fevers, chills, changes in vision or hearing, shortness of breath, cough or congestion, nausea, vomiting, or experiencing any numbness/tingling/weakness/swelling in her extremities. Patient denies having any previous cardiac arrhythmias or cardiac history, but does report both her mother and maternal grandfather of a heart attack in their 70s. Upon arrival to our facility, patient underwent evaluation in the emergency department. Vital signs upon arrival show blood pressure 166/81, heart rate 83, respiratory rate 16, temp 97.6 F, and SpO2 100% on room air. EKG completed showing normal sinus rhythm at 79 bpm with inferior lateral T wave inversions in leads II, III, aVF and V4 through V6 upon personal review and interpretation. (T wave inversion in inferior/lateral leads II, III, aVF, and V4-V6 was present in previous EKG completed 04/09/2022 upon personal review and comparison). Chest x- ray completed negative for acute cardiopulmonary process. Labs completed and reviewed. CBC unremarkable. Coagulation profile normal findings. BMP showing mild hyperchloremia with chloride of 111 and elevated BUN of 19 otherwise normal findings. Blood glucose 88. Magnesium 1.9. Liver profile unremarkable. Troponin was negative at less than 0.012. Patient aspirin 324 mg p.o. x 1 dose in the emergency department and admitted under our services with consultation to cardiology. Review of systems: Pertinent positives and negatives as discussed in HPI, a complete review of systems was performed and all other systems are negative. Physical exam: Vital signs reviewed and stable. General: Nontoxic, no distress and appears stated age. Derm: Skin warm and dry, normal coloration for ethnicity. Head: Atraumatic, normocephalic and symmetric. Eyes: EOM's intact, no lid lag, and anicteric sclera Mouth: no lip lesions, mucus membranes moist Cardiovascular: regular rate and rhythm with normal S1S2, no murmur, positive posterior tibial pulses bilaterally, and cap refill < 2 seconds. Lungs: Respirations even, regular, and unlabored on room air. Lungs CTA bilaterally, no rhonchi, no rales, no wheezing, and no accessory muscle usage. Abdominal: soft, nontender to palpation, no guarding, no appreciable organ omegaly Ext: ROM intact. No gross muscle atrophy, no edema, no contractures Neuro: Speech clear, face symmetrical and CN II-XII grossly intact with no noted focal neuro deficits Psych: Alert and oriented to person, place, time, and situation. Appropriate and pleasant affect. Assessment and Plan of Care: Chest pain and palpitaions, rule out acute coronary event Hypertension Hyperlipidemia -Cardiology consulted, appreciate recommendations -Telemetry monitoring -Trend troponins and obtain a TSH w/ reflex free T4. -Continue cardiac medication regimen with aspirin 81 mg daily, atorvastatin 20 mg daily, hydrochlorothiazide 25 mg daily, and losartan 50 mg daily. -Lipid profile with a.m. labs. -Echocardiogram -Heart Score 5 Hypothyroidism -Continue daily medication regimen with levothyroxine 50 mcg daily and follow-up on TSH with free T4. Depression and anxiety -Continue daily medication regimen with BuSpar 10 mg twice daily and Effexor 75 mg daily. Data and imaging reviewed: As stated above in HPI The patient is admitted with an anticipated less than 2 midnight stay for evaluation of chest pain and palpitations CODE STATUS: Full code DVT prophylaxis: Lovenox Anticipated discharge date: Pending clinical course, likely 24 to [address]: Home Patient was seen independently by Nurse Practitioner. This document was prepared using [employer] dictation software. Please allow for errors in shipmaster while rare they do occur. Ryan Marcelino, FLIGHT COMMUNICATIONS OPERATOR rendered care for this patient independently, reviewed the findings and plan as documented in the note above and agree with plan. I did not physically speak with or examine the patient on this date. Past Medical History Past Medical History: Cancer Additional Past Medical History / Comment(s): see Dr Bergeron H&P, hx cervical cancer History of Any Multi-Drug Resistant Organisms: None Reported Past Surgical History: Appendectomy, Bladder Surgery, Cholecystectomy, Hysterectomy Additional Past Surgical History / Comment(s): lcaudia cataracts Past Anesthesia/Blood Transfusion Reactions: No Reported Reaction Additional Past Anesthesia/Blood Transfusion Reaction / Comment(s): no hx blood transfusion Past Psychological History: Anxiety Smoking Status: Never smoker - Past Family History Sister(s) Family Medical History: Cancer Medications and Allergies Home Medications Medication Instructions Recorded Confirmed Type Levothyroxine Sodium [Synthroid] 50 mcg PO DAILY 04/15/22 01/15/24 History Losartan [Cozaar] 50 mg PO DAILY 04/15/22 01/15/24 History Pedi Multivit No.25/Folic Acid 300 mcg PO DAILY 04/15/22 01/15/24 History [Flintstones Multivit Chew Tab] Rosuvastatin [Crestor] 10 mg PO DAILY 04/15/22 01/15/24 History Venlafaxine HCl [Effexor XR] 75 mg PO DAILY 04/15/22 01/15/24 History busPIRone HCl [Buspar] 10 mg PO BID 04/15/22 01/15/24 History hydroCHLOROthiazide 25 mg PO DAILY 04/15/22 01/15/24 History Pramipexole [Mirapex] 0.5 mg PO HS 01/15/24 01/15/24 History Semaglutide [Ozempic] 0.5 mg SQ TU 01/15/24 01/15/24 History Allergies Allergy/AdvReac Type Severity Reaction Status Date / Time bandaid Allergy little skin Uncoded 01/15/24 16:40 Physical Exam Vitals: Vital Signs Temp Pulse Resp BP Pulse Ox 01/15/24 15:00 72 18 160/90 96 01/15/24 14:25 83 16 111/86 98 01/15/24 13:18 97.6 F 83 16 166/81 100 Intake and Output 01/15/24 01/15/24 01/15/24 06:59 14:59 22:59 Other: Weight 72.575 kg Results CBC & Chem 7: 01/15/24 14:00 01/15/24 14:00 Labs: Abnormal Lab Results - Last 24 Hours (Table) 01/15/24 Range/Units 14:00 Chloride 111 H (98-107) mmol/L BUN 19 H (7-17) mg/dL
[2024-01-15] MEDS: busPIRone HCl 10 MG TAB PO SCH (20:17)
[2024-01-15] MEDS: PRAMIPEXOLE 0.5 MG TAB PO SCH (20:18)
[2024-01-16] MEDS: LEVOTHYROXINE 50 MCG TAB PO SCH (06:13)
[2024-01-16] MEDS ORDERED: ASPIRIN 325 MG TAB PO SCH (09:00)
[2024-01-16 10:26] LABS: HCT 36.4 % (37.2-46.3); HGB 11.6 g/dL (12.0-15.0); MCH 29.3 pg (27.0-32.0); MCHC 31.9 g/dL (32.0-37.0); MCV 91.9 FL (80.0-97.0); Mean Platelet Volume 10.4 FL (9.5-12.2); NRBC Per 100 WBC 0 X 10*3/uL (0.00-0.01); Platelet Count 316 X 10*3/uL (140-440); RBC 3.96 X 10*6/uL (4.10-5.20); RDW 13.8 % (11.5-14.5); WBC 7.73 X 10*3/uL (4.50-10.00)
[2024-01-16 11:59] VITALS: RESP 18
[2024-01-16] MEDS: MULTIVITAMINS, THERA 1 EACH TAB PO SCH (11:59)
[2024-01-16] MEDS: ASPIRIN 81 MG PO SCH (11:59)
[2024-01-16] MEDS: hydroCHLOROthiazide 25 MG TAB PO SCH (12:00)
[2024-01-16] MEDS: LOSARTAN 50 MG TAB PO SCH (12:00)
[2024-01-16] MEDS: VENLAFAXINE HCL ER 75 MG CAP PO SCH (12:00)
[2024-01-16] MEDS: ATORVASTATIN 20 MG TAB PO SCH (12:00)
[2024-01-16] MEDS: ENOXAPARIN 40 MG/0.4 ML SYRINGE SQ SCH (12:01)
[2024-01-16 12:38] LABS: ALT 17 U/L (8-44); AST 24 U/L (13-35); Albumin 3.9 g/dL (3.8-4.9); Albumin/Globulin Ratio 1.86 Ratio (1.60-3.17); Alkaline Phosphatase 102 U/L (41-126); BUN/Creat Ratio 22.29 Ratio (12.00-20.00); Blood Urea Nitrogen 15.6 mg/dL (9.0-27.0); Calcium 9.6 mg/dL (8.7-10.3); Carbon Dioxide 24.8 mmol/L (21.6-31.8); Chloride 108 mmol/L (96-109); Chol/HDL Ratio 2.68 Ratio; Globulin 2.1 g/dL (1.6-3.3); Glucose 101 mg/dL (70-110); Potassium 4.3 mmol/L (3.5-5.5); Sodium 144 mmol/L (135-145); Total Bilirubin 0.2 mg/dL (0.3-1.2)
--- NOTE | 2024-01-16 13:51 | P.CRDCN ---
History of Present Illness Consult date: 01/16/24 History of present illness: HISTORY OF PRESENTING ILLNESS Patient presented to [place] because of symptoms of palpitations. This started when patient was doing some work in her garage like painting. She denies having any active substernal chest pressure lightheadedness dizziness. She has never had the symptoms and therefore she got concerned and therefore decided to come to the ER. She denies any history of smoking, recreational drug use marijuana use or alcohol use. She denies any prior cardiovascular history. She has not seen a electron microprobe operator in the past. REVIEW OF SYSTEMS 14 point review of system is negative except what is mentioned above in HPI. PHYSICAL EXAMINATION Vital signs reviewed. Head: Normocephalic. Eyes: Sclerae nonicteric. Neck: Brisk carotid upstroke, no jugular venous distention. Lungs: Clear to auscultation. Heart: Regular rate and rhythm, S1-S2, no S3, no murmur or rub. Abdomen: Soft nontender, positive bowel sounds. Extremities: No edema, intact distal pulses. Neuro: Alert, oritented, no focal deficits. Detailed neuro exam was not performed. ASSESSMENT Palpitations, likely due to PVCs Atypical chest pain, resolved, rule out of acute coronary syndrome. Mildly abnormal ECG with nonspecific T wave changes in lateral leads. Essential hypertension Dyslipidemia Obesity Hypothyroidism on levothyroxine 50 mcg. Pertinent labs Troponin x 3 were negative BUN 19, creatinine 0.5, potassium 3.8, magnesium 1.9, hemoglobin 12.3, TSH 1.9 Cardiac testing ECG shows sinus rhythm with nonspecific T wave changes in lateral leads Telemetry shows intermittent PVCs, mostly monomorphic PLAN Start aspirin 81 mg, continue other medications which she takes at home which includes losartan 50mg. Discontinue HCTZ as it can cause low potassium and magnesium and can cause palpitations. Start amlodipine 5 mg instead. Goal blood pressure 130/70. Magnesium glycine 100 mg daily Recommend outpatient follow-up with Dr. Wei for an echocardiogram, stress echo and a 14-day Holter monitor. Tony Wei MD, FACC, RPVI Thank you for allowing [facility] to participate in this patient's care. Feel free to reach out in case of any followup questions. Past Medical History Past Medical History: Cancer Additional Past Medical History / Comment(s): see Dr Gundlapalli H&P, hx cervical cancer History of Any Multi-Drug Resistant Organisms: None Reported Past Surgical History: Appendectomy, Bladder Surgery, Cholecystectomy, Hysterectomy Additional Past Surgical History / Comment(s): claudia cataracts Past Anesthesia/Blood Transfusion Reactions: No Reported Reaction Additional Past Anesthesia/Blood Transfusion Reaction / Comment(s): no hx blood transfusion Past Psychological History: Anxiety Smoking Status: Never smoker - Past Family History Sister(s) Family Medical History: Cancer Medications and Allergies Home Medications Medication Instructions Recorded Confirmed Type Levothyroxine Sodium [Synthroid] 50 mcg PO DAILY 04/15/22 01/15/24 History Losartan [Cozaar] 50 mg PO DAILY 04/15/22 01/15/24 History Pedi Multivit No.25/Folic Acid 300 mcg PO DAILY 04/15/22 01/15/24 History [Flintstones Multivit Chew Tab] Rosuvastatin [Crestor] 10 mg PO DAILY 04/15/22 01/15/24 History Venlafaxine HCl [Effexor XR] 75 mg PO DAILY 04/15/22 01/15/24 History busPIRone HCl [Buspar] 10 mg PO BID 04/15/22 01/15/24 History hydroCHLOROthiazide 25 mg PO DAILY 04/15/22 01/15/24 History Pramipexole [Mirapex] 0.5 mg PO HS 01/15/24 01/15/24 History Semaglutide [Ozempic] 0.5 mg SQ TU 01/15/24 01/15/24 History Allergies Allergy/AdvReac Type Severity Reaction Status Date / Time bandaid Allergy little skin Uncoded 01/15/24 16:40 Physical Exam Vitals: Vital Signs Temp Pulse Resp BP Pulse Ox 01/16/24 11:55 74 18 153/73 99 01/16/24 07:56 97.4 F L 77 20 141/69 97 01/16/24 06:15 67 18 133/81 97 01/16/24 03:04 67 18 140/71 98 01/15/24 22:53 97.9 F 74 17 156/82 99 01/15/24 20:16 98.3 F 81 18 133/60 98 01/15/24 18:00 72 18 150/65 100 01/15/24 16:27 72 18 141/83 100 01/15/24 15:00 72 18 160/90 96 01/15/24 14:25 83 16 111/86 98 Intake and Output 01/15/24 01/16/24 01/16/24 22:59 06:59 14:59 Other: # Voids 1 Results 01/16/24 05:25 01/16/24 05:25 Cardiac Enzymes 01/15/24 01/15/24 01/15/24 Range/Units 14:00 14:00 16:42 AST 30 (14-36) U/L Troponin I <0.012 <0.012 (0.000-0.034) ng/mL 01/15/24 01/16/24 Range/Units 20:18 05:25 AST 24 (14-36) U/L Troponin I <0.012 (0.000-0.034) ng/mL Coagulation 01/15/24 Range/Units 14:00 PT 10.2 (10.0-12.5) sec APTT 23.6 (22.0-30.0) sec Lipids 01/16/24 Range/Units 05:25 Triglycerides 101.00 (0.00-149.00) mg/dL Cholesterol 227.00 H (0.00-200.00) mg/dL HDL Cholesterol 84.80 H (40.00-60.00) mg/dL Cholesterol/HDL Ratio 2.68 Ratio CBC 01/15/24 01/16/24 Range/Units 14:00 05:25 WBC 6.3 7.73 (3.8-10.6) k/uL RBC 4.04 3.96 L (3.80-5.40) m/uL Hgb 12.3 11.6 L (11.4-16.0) gm/dL Hct 37.9 36.4 L (34.0-46.0) % Plt Count 313 316 (150-450) k/uL Comprehensive Metabolic Panel 01/15/24 01/16/24 Range/Units 14:00 05:25 Sodium 139 144 (137-145) mmol/L Potassium 3.8 4.3 (3.5-5.1) mmol/L Chloride 111 H 108 (98-107) mmol/L Carbon Dioxide 24 24.8 (22-30) mmol/L BUN 19 H 15.6 (7-17) mg/dL Creatinine 0.75 0.7 (0.52-1.04) mg/dL Glucose 88 101 (74-99) mg/dL Calcium 9.6 9.6 (8.4-10.2) mg/dL AST 30 24 (14-36) U/L ALT 20 17 (4-34) U/L Alkaline Phosphatase 98 102 (38-126) U/L Total Protein 6.6 6.0 L (6.3-8.2) g/dL Albumin 4.1 3.9 (3.5-5.0) g/dL Current Medications Generic Name Dose Route Start Last Admin Trade Name Freq PRN Reason Stop Dose Admin Aspirin 81 mg 01/16/24 09:00 01/16/24 11:59 Aspirin 81 Mg PO 81 mg DAILY ANGELINA Administration Atorvastatin Calcium 20 mg 01/16/24 09:00 01/16/24 12:00 Atorvastatin 20 Mg Tab PO 20 mg DAILY ANGELINA Administration Buspirone HCl 10 mg 01/15/24 21:00 01/16/24 12:00 Buspirone Hcl 10 Mg Tab PO 10 mg BID ANGELINA Administration Enoxaparin Sodium 40 mg 01/16/24 09:00 01/16/24 12:01 Enoxaparin 40 Mg/0.4 Ml Syringe SQ Not Given DAILY ANGELINA Hydrochlorothiazide 25 mg 01/16/24 09:00 01/16/24 12:00 Hydrochlorothiazide 25 Mg Tab PO 25 mg DAILY ANGELINA Administration Levothyroxine Sodium 50 mcg 01/16/24 06:30 01/16/24 06:13 Levothyroxine 50 Mcg Tab PO 50 mcg 0630 ANGELINA Administration Losartan Potassium 50 mg 01/16/24 09:00 01/16/24 12:00 Losartan 50 Mg Tab PO 50 mg DAILY ANGELINA Administration Multivitamins 1 each 01/16/24 09:00 01/16/24 11:59 Multivitamins, Thera 1 Each Tab PO 1 each DAILY ANGELINA Administration Nitroglycerin 0.4 mg 01/15/24 15:25 Nitroglycerin Sl Tabs 0.4 Mg Tab SUBLINGUAL Q5M PRN Chest Pain Pramipexole Dihydrochloride 0.5 mg 01/15/24 21:00 01/15/24 20:18 Pramipexole 0.5 Mg Tab PO 0.5 mg HS ANGELINA Administration Venlafaxine HCl 75 mg 01/16/24 09:00 01/16/24 12:00 Venlafaxine Hcl Er 75 Mg Cap PO 75 mg DAILY ANGELINA Administration Intake and Output 01/15/24 01/16/24 01/16/24 22:59 06:59 14:59 Other: # Voids 1 01/16/24 05:25 01/16/24 05:25
--- NOTE | 2024-01-16 14:35 | P.DS ---
Providers Date of admission: 01/15/24 15:26 Expected date of discharge: 01/16/24 Attending physician: Flora Villa MD Consults: 01/15/24 15:25 Consult Physician Urgent Consulting Provider: Oliverio Denny Consult Reason/Comments: chest pain Do you want consulting provider notified?: Yes Primary care physician: [facility] Hospital Course: Discharge Diagnosis: Chest pain and palpitaions, acute coronary event ruled out. Troponins were trended all negative at less than 0.012 x 3 draws. TSH was 1.900. Lipid profile showing elevated cholesterol of 227 and HDL of 84.80. Echocardiogram was completed. Patient was evaluated by personal coach who recommended discontinuation of hydrochlorothiazide and starting patient on daily aspirin 81 mg daily and amlodipine 5 mg daily. Labor Relations Officer clearing patient from cardiac perspective for discharge recommending patient follow-up outpatient in their office in 1 week for echocardiogram results. Hypertension. Hydrochlorothiazide was discontinued and patient started on amlodipine 5 mg daily and to continue with losartan 50 mg daily. Hyperlipidemia. Patient to continue rosuvastatin 10 mg daily. Hypothyroidism. Continue daily medication regimen with levothyroxine 50 mcg daily and TSH normal findings at 1.900.. Depression and anxiety. Continue daily medication regimen with BuSpar 10 mg twice daily and Effexor 75 mg daily. Hospital Course: Patient is a very pleasant 73-year-old female with a past medical history of hyp ertension, hyperlipidemia, hypothyroidism, depression, anxiety, and cervical cancer status post hysterectomy. She presented to the emergency department with a chief complaint of chest pain/pressure and palpitations. Upon arrival to our facility, patient underwent evaluation in the emergency department. Vital signs upon arrival show blood pressure 166/81, heart rate 83, respiratory rate 16, temp 97.6 F, and SpO2 100% on room air. EKG completed showing normal sinus rhythm at 79 bpm with inferior lateral T wave inversions in leads II, III, aVF and V4 through V6 upon personal review and interpretation. (T wave inversion in inferior/lateral leads II, III, aVF, and V4-V6 was present in previous EKG completed 04/09/2022 upon personal review and comparison). Chest x-ray completed negative for acute cardiopulmonary process. Labs completed and reviewed. CBC unremarkable. Coagulation profile normal findings. BMP showing mild hyperchloremia with chloride of 111 and elevated BUN of 19 otherwise normal findings. Blood glucose 88. Magnesium 1.9. Liver profile unremarkable. Troponin was negative at less than 0.012. Patient aspirin 324 mg p.o. x 1 dose in the emergency department and admitted under our services with consultation to cardiology. Troponins were trended all negative at less than 0.012 x 3 draws. TSH was 1.900. Lipid profile showing elevated cholesterol of 227 and HDL of 84.80. Echocardiogram was completed. Patient was evaluated by personal coach who recommended discontinuation of hydrochlorothiazide and starting patient on daily aspirin 81 mg daily and amlodipine 5 mg daily. Labor Relations Officer clearing patient from cardiac perspective for discharge recommending patient follow-up outpatient in their office in 1 week for echocardiogram results. Patient had full re solution of chest pain and has been free from any cardiac complaints throughout the night and morning. She denies having any other complaints at this time. Patient medically optimized and stable for discharge at this time and to follow- up outpatient with PCP in 1 to 2 days and personal coach in 1 week. Physical exam: Vital signs reviewed and stable. General: Nontoxic, no distress and appears stated age. Derm: Skin warm and dry, normal coloration for ethnicity. Head: Atraumatic, normocephalic and symmetric. Eyes: EOM's intact, no lid lag, and anicteric sclera Mouth: no lip lesions, mucus membranes moist Cardiovascular: regular rate and rhythm with normal S1S2, no murmur, positive posterior tibial pulses bilaterally, and cap refill < 2 seconds. Lungs: Respirations even, regular, and unlabored on room air. Lungs CTA bilaterally, no rhonchi, no rales, no wheezing, and no accessory muscle usage. Abdominal: soft, nontender to palpation, no guarding, no appreciable organomegaly Ext: ROM intact. No gross muscle atrophy, no edema, no contractures Neuro: Speech clear, face symmetrical and CN II-XII grossly intact with no noted focal neuro deficits Psych: Alert and oriented to person, place, time, and situation. Appropriate and pleasant affect. A total of 35 minutes of time were spent preparing this complex discharge summary. Pt was discharged on 01/16/2024 at 2:34 PM. Patient was seen independently by Nurse Practitioner. This document was prepared using [employer] dictation software. Please allow for errors in waistband setter lockstitch while rare they do occur. Ryan Benson NP rendered care for this patient independently, reviewed the findings and plan as documented in the note above. I did not physically speak with or examine the patient on this date. Patient Condition at Discharge: Stable Plan - Discharge Summary New Discharge Prescriptions: New amLODIPine [Norvasc] 5 mg PO DAILY 30 Days #30 tab Aspirin 81 mg PO DAILY 30 Days #30 tab Continue Venlafaxine HCl [Effexor XR] 75 mg PO DAILY busPIRone HCl [Buspar] 10 mg PO BID Semaglutide [Ozempic] 0.5 mg SQ TU Pedi Multivit No.25/Folic Acid [Flintstones Multivit Chew Tab] 300 mcg PO DAILY Levothyroxine Sodium [Synthroid] 50 mcg PO DAILY Losartan [Cozaar] 50 mg PO DAILY Rosuvastatin [Crestor] 10 mg PO DAILY Pramipexole [Mirapex] 0.5 mg PO HS Discontinued hydroCHLOROthiazide 25 mg PO DAILY Discharge Medication List Levothyroxine Sodium [Synthroid] 50 mcg PO DAILY 04/15/22 [History] Losartan [Cozaar] 50 mg PO DAILY 04/15/22 [History] Pedi Multivit No.25/Folic Acid [Flintstones Multivit Chew Tab] 300 mcg PO DAILY 04/15/22 [History] Rosuvastatin [Crestor] 10 mg PO DAILY 04/15/22 [History] Venlafaxine HCl [Effexor XR] 75 mg PO DAILY 04/15/22 [History] busPIRone HCl [Buspar] 10 mg PO BID 04/15/22 [History] Pramipexole [Mirapex] 0.5 mg PO HS 01/15/24 [History] Semaglutide [Ozempic] 0.5 mg SQ TU 01/15/24 [History] Aspirin 81 mg PO DAILY 30 Days #30 tab 01/16/24 [Rx] amLODIPine [Norvasc] 5 mg PO DAILY 30 Days #30 tab 01/16/24 [Rx] Follow up Appointment(s)/Referral(s): Olga Jennings MD [Primary Care Provider] - 1-2 days Tony Wei MD [Medical Doctor] - 1 Week Activity/Diet/Wound Care/Special Instructions: Activity: As tolerated. Take breaks as needed. Diet: Heart healthy and carb consistent diet. Avoid salts, or foods with hidden salts such as canned or boxed foods and frozen dinners. Extra salt makes your heart work harder and traps the fluid in your body for longer. Special Instructions: Take all of your medications as directed and remember to keep all of your doctor's appointments and follow-up as needed. You will need to follow-up outpatient with personal coach, Dr. Wei echocardiogram results. Thank you for allowing us to participate in your care, it was truly a pleasure having you for our patient!!! . Discharge Disposition: HOME SELF-CARE
[2024-01-16 14:52] VITALS: BP 145/78; PULSE 64; TEMP 98
--- NOTE | 2024-01-16 20:28 | CA ---
Transthoracic Echo Report Name: Edel Hayes Age: 73 Gender: F : 1950 Exam Date: 01/16/2024 08:35 Exam Location: [facility] Ht (in): 60 Wt (lb): 160 Ordering Physician: Ryan Benson Attending/Referring Phys: Senior Center Director aLurie Kline RDCS Procedure CPT: Indications: CP started at rest, htn, hld Cardiac Hx: Technical Quality: Good Contrast 1: Total Dose (mL): Contrast 2: Total Dose (mL): MEASUREMENTS (Male / Female) Normal Values 2D ECHO LV Diastolic Diameter PLAX 4.8 cm 4.2 - 5.9 / 3.9 - 5.3 cm LV Systolic Diameter PLAX 4.2 cm IVS Diastolic Thickness 0.7 cm 0.6 - 1.0 / 0.6 - 0.9 cm LVPW Diastolic Thickness 0.8 cm 0.6 - 1.0 / 0.6 - 0.9 cm LV Relative Wall Thickness 0.3 LVOT Diameter 1.9 cm LV Diastolic Volume MOD BP 80.2 cm??? 67 - 155 / 56 - 104 cm??? LV Systolic Volume MOD BP 28.5 cm??? 22 - 58 / 19 - 49 cm??? LV Ejection Fraction MOD BP 64.5 % >= 55 % LV Cardiac Index MOD BP 2032.2 cm???/min???m??? LV Diastolic Volume MOD 4C 74.3 cm??? LV Systolic Volume MOD 4C 27.8 cm??? LV Ejection Fraction MOD 4C 62.6 % LV Cardiac Index MOD 4C 1825.3 cm???/min???m??? LV Diastolic Length 4C 7.0 cm LV Systolic Length 4C 5.9 cm LV Diastolic Volume MOD 2C 83.6 cm??? LV Systolic Volume MOD 2C 27.6 cm??? LV Ejection Fraction MOD 2C 67.0 % LV Cardiac Index MOD 2C 2200.4 cm???/min???m??? LV Diastolic Length 2C 7.3 cm LV Systolic Length 2C 5.5 cm LA Volume 58.5 cm??? 18 - 58 / 22 - 52 cm??? LA Volume Index 32.8 cm???/m??? 16 - 28 cm???/m??? Ascending Aorta Diameter 3.4 cm DOPPLER AV Peak Velocity 129.7 cm/s AV Peak Gradient 6.7 mmHg AV Mean Velocity 88.7 cm/s AV Mean Gradient 3.5 mmHg AV Velocity Time Integral 30.1 cm LVOT Peak Velocity 99.3 cm/s LVOT Peak Gradient 3.9 mmHg LVOT Velocity Time Integral 22.2 cm LVOT Stroke Volume 62.4 cm??? LVOT Stroke Volume Index 36.8 ml/m??? LVOT Cardiac Index 2451.2 cm???/min???m??? AV Area Cont Eq vti 2.1 cm??? AV Area Cont Eq pk 2.2 cm??? MV Area PHT 4.6 cm??? Mitral E Point Velocity 57.0 cm/s Mitral A Point Velocity 95.3 cm/s Mitral E to A Ratio 0.6 MV Deceleration Time 164.7 ms TR Peak Velocity 200.1 cm/s TR Peak Gradient 16.0 mmHg Right Atrial Pressure 5.0 mmHg Pulmonary Artery Systolic Pressu 21.0 mmHg Right Ventricular Systolic Press 21.0 mmHg PV Peak Velocity 85.8 cm/s PV Peak Gradient 2.9 mmHg FINDINGS Left Ventricle Left ventricular ejection fraction is estimated at 55-60 %. Left ventricular cavity size normal. Left ventricular wall thickness normal. No obvious regional wall motion abnormalities. Right Ventricle Normal right ventricular size and function. Right ventricular systolic pressure within normal limits. Right Atrium Normal right atrial size. Left Atrium Mildly increased left atrial volume. Mitral Valve Mitral valve thickened. No evidence for mitral valve prolapse. No mitral stenosis. Trace mitral regurgitation. Aortic Valve Trileaflet aortic valve. No aortic stenosis. Trace aortic regurgitation. Tricuspid Valve Structurally normal tricuspid valve. No tricuspid stenosis. Mild tricuspid regurgitation. Pulmonic Valve Structurally normal pulmonic valve. No pulmonic stenosis. Trace pulmonic regurgitation. Pericardium No pericardial effusion. Aorta Normal size aortic root and proximal ascending aorta. CONCLUSIONS Left ventricular ejection fraction is estimated at 55-60 %. No obvious regional wall motion abnormalities. Normal RV size and systolic function No significant valvular dysfunction Previewed by: Dr Tony Wei (Electronically Signed) Final Date: 16 January 2024 20:27
== END 2024-01-16 14:56 | disposition home or self-care (01) ==
LOC: EC 13:15 → 6NMEDSUR 15:26
PROVIDERS: ADMIT Internal Medicine; ATTEND Internal Medicine
DX: R07.89 Other chest pain (principal); R00.2 Palpitations; R94.31 Abnormal electrocardiogram [ECG] [EKG]; I49.3 Ventricular premature depolarization; I10 Essential (primary) hypertension; E78.5 Hyperlipidemia, unspecified; E03.9 Hypothyroidism, unspecified; E66.9 Obesity, unspecified; E87.8 Other disorders of electrolyte and fluid balance, not elsewhere classified; F32.A Depression, unspecified; F41.9 Anxiety disorder, unspecified; Z79.890 Hormone replacement therapy; Z79.899 Other long term (current) drug therapy; Z82.49 Family history of ischemic heart disease and other diseases of the circulatory system; Z90.710 Acquired absence of both cervix and uterus
CPT/HCPCS: 99285; 36415; 93005 ×2; 93306; 80061; 80053 ×2; 84443; 83735 ×2; 84484; 85025; 85027; 85610; 85730; 71046; G0378 ×2